=== PATIENT | male | born 1960 | race Caucasian/White ===

== ENCOUNTER → 2020-05-08 08:20 | Outpatient (CLI) | payer SELFPAY ==
--- NOTE | 2020-05-08 08:33 | CT_ITS ---
PROCEDURE: CT HEART W CALCIUM SCORE CLINICAL HISTORY: SCREENING COMPARISON: No exams were available for comparison TECHNIQUE: Axial images obtained with sagittal and coronal reformats. All CT scans at the facility use one or more dose reduction, viz: automated exposure control, ma/kV adjustment per patient size (including targeted exams where dose is matched to indication, i.e. head), or iterative reconstruction technique. FINDINGS: The coronary artery calcium score is 730 indicating extensive calcific plaque burden with very high cardiovascular risk.. Incidentally noted are some calcified nodes in the right hilum. IMPRESSION: Extensive calcific plaque burden with very high cardiovascular disease risk Dictated by: Braeden Sutton MD 05/08/2020 16:53 Electronically signed by Braeden Sutton MD in [facility] 05/08/2020 16:53
== END ==
PROVIDERS: PCP Family Medicine; Visit Provider Family Medicine
DX: Z13.6 Encounter for screening for cardiovascular disorders (principal)
CPT/HCPCS: 75571

== ENCOUNTER → 2021-07-21 14:02 | Outpatient (CLI) | payer OTHER, SELFPAY ==
--- NOTE | 2021-07-21 14:06 | XR_ITS ---
PROCEDURE: XR WRIST RT MIN 3V CLINICAL INDICATION: right wrist pain COMPARISON: No exams were available for comparison FINDINGS: No fracture or dislocation. No lytic or blastic change. There is normal mineralization. There are mild osteoarthritic changes at the 1st metacarpal-carpal junction and the distal radial ulnar joint. Other findings:None. IMPRESSION: Mild osteoarthritic change. No acute finding Dictated by: Braeden Sutton MD 07/21/2021 14:43 Braeden Sutton MD in [facility] 07/21/2021 14:43
== END ==
PROVIDERS: PCP Family Medicine; Visit Provider Orthopaedic Surgery
DX: M25.531 Pain in right wrist (principal)
CPT/HCPCS: 73110

== ENCOUNTER 2023-07-19 09:19 | Day surgery (SDC) | payer OTHER, SELFPAY ==
[2023-06-30 10:55] VITALS: BMI 25.8
[2023-07-19 11:37] VITALS: BP 136/80; PULSE 51; RESP 18; TEMP 36.1; O2SAT 100
--- NOTE | 2023-07-19 12:34 | EXP.ANES.CKL ---
[facility] Disclaimer: The information contained in this section may have been updated after the patient was seen, as this information can be updated by other users. Medical History Hyperlipidemia Hypertension Surgical History History of colonoscopy Family History Other Colon cancer Family history of cancer Family history of diabetes mellitus type II Family history of myocardial infarction Social History Smoking Status: Never smoker alcohol intake: never substance use type: denies use current occupational status: retired Travel in the last 8 weeks: Inside the [place] household members: spouse housing: house lives independently: No marital status: education level: high school service: No detention: No caffeine: No do you feel safe at home: Yes victim of physical abuse: No victim of emotional abuse: No victim of sexual abuse: No would you like helpful sources: No [facility] Anesthesia Checklist Patient Identification Patient Identification: Arm Band and Verbal (Name & ) Structural Data Admitted From: Home Planned Operative Procedure/s: Colonoscopy Consent for Planned Operative Procedure(s) Verified: Yes NPO Status Verified Time NPO: 00:00 Airway Assessment Mallampati Score:: Class II C-Spine Mobility Assessed: Yes TMJ Mobility Assessed: Yes Dentition: Good Dentition Neurological Assessment Level of Consciousness: Awake Hx Seizures: No Numbness or tingling in extremities: No Anesthesia Plan Anesthesia Risk discussed: Yes Anesthesia Plan: Verified ASA Class: II Anesthesia Type: MAC
[2023-07-19 12:42] VITALS: O2SAT 100
--- NOTE | 2023-07-19 13:10 | HMH.SCOPE ---
Procedure: Date: 07/19/23 Patient Date of :: 1960 Procedure Performed:: Colonoscopy Indications:: Screening colonoscopy. Family history of colon cancer Performing Provider:: George Rao MD Referring Provider:: James Malnoey MD Sedation:: See RN records Procedure:: After placing the patient in the left lateral decubitus position, the colonoscopy was gently inserted into the rectum and under direct visualization advanced to the cecum which was identified by transillumination in the right lower quadrant, identification of the ileocecal valve, appendiceal orifice, and cecal strap. Color, texture, mucosa, and anatomy of the colon were carefully examined with the scope. Findings:: Anal canal: normal Rectum: Diminutive polyp. Removed with cold forceps Sigmoid colon: normal without polyps or inflammatory changes Descending colon: Sessile polyp 3 mm in size. Removed with cold forceps Splenic flexure: normal Transverse colon: normal without polyps or inflammatory changes Hepatic flexure: normal Ascending colon: normal without polyps or inflammatory changes Cecum: Sessile polyp 3 mm in size. Removed with cold forceps Terminal ileum: not visualized Impression: Polyp of cecum Polyp of descending colon Polyp of rectum Recommendations:: Await pathology results Repeat colonoscopy in 5 years Complications:: none Estimated blood obtained (mL): 0 Colonoscopy Component Colonoscopy Component Was a colonoscopy performed during today's procedure?: Yes Recommended follow up colonoscopy of at least 10 years?: Yes
[2023-07-19 13:12] VITALS: BP 106/65; PULSE 89; RESP 18; TEMP 36.7; O2SAT 92
[2023-07-19 13:22] VITALS: BP 105/67; PULSE 72; RESP 18; O2SAT 97
[2023-07-19 13:32] VITALS: BP 108/71; PULSE 73; RESP 18; O2SAT 97
[2023-07-19 13:59] VITALS: BP 120/79; PULSE 69; RESP 18; O2SAT 97
== END 2023-07-19 14:34 | disposition home or self-care (01) ==
PROVIDERS: PCP Family Medicine; Visit Provider Internal Medicine
PROC: 0DJD8ZZ Inspection of Lower Intestinal Tract, Via Natural or Artificial Opening Endoscopic (ICD-10-PCS; CPT 45378; principal; 2023-07-19 11:30)
DX: Z12.11 Encounter for screening for malignant neoplasm of colon (principal); Z80.0 Family history of malignant neoplasm of digestive organs; D12.0 Benign neoplasm of cecum
CPT/HCPCS: 45380; J2704